=== PATIENT | female | born 1980 | race Caucasian/White ===

== ENCOUNTER 2024-07-28 12:30 | Inpatient (IN) | payer OTHER ==
[~2024-07-28] VITALS: Ht 154.9 cm; Wt 60.3 kg
[2024-07-28 13:02] VITALS: BP 124/79
[2024-07-28] MEDS ORDERED: MAGNESIUM SULFATE IN WATER 100 ML IV ONE (13:15)
[2024-07-28] MEDS ORDERED: RINGERS SOLUTION,LACTATED 1,000 ML IV SCH (13:15)
[2024-07-28] MEDS ORDERED: MAGNESIUM SULFATE IN WATER 500 ML IV SCH (13:30)
[2024-07-28] MEDS ORDERED: PRENATAL TABLE1 EAC4 PO (13:59)
[2024-07-28] MEDS ORDERED: IRON236 MG PO (14:00)
[2024-07-28] MEDS ORDERED: VITAMIN B-121000 MC4 PO (14:00)
[2024-07-28] MEDS ORDERED: FOLIC ACID0.4 MG PO (14:01)
[2024-07-28] MEDS ORDERED: ADULT LOW DOSE81 M1 PO (14:01)
[2024-07-28 14:04] LABS: URINE APPEARANCE Clear; URINE BILIRRUBIN Negative (NEGATIVE); URINE BLOOD Negative; URINE COLOR Yellow; URINE GLUCOSE Negative (NEGATIVE); URINE KETONE Negative (NEGATIVE); URINE LEUKOCYTE Negative; URINE NITRATE Negative; URINE PROTEIN Negative (NEGATIVE); URINE UROBILINOGEN 0.2 E.U./dl
[2024-07-28 14:05] LABS: URINE BACTERIA 430.9 uL (0.0-1933); URINE EPITHELIAL CELLS 24.7 uL (0.0-38.8); URINE WBC 7.4 uL (0.0-23.2)
[2024-07-28 14:07] LABS: HEMOGLOBIN 12.3 g/dL (12.0-15.00); MEAN CELL VOLUME 93.1 fL (80.00-100.00); MEAN CORPUSCULAR HEMOGLOBIN 31.8 pg (27.00-32.0); MEAN CORPUSCULAR HGB CONC 34.1 g/dl (32.0-36.0); PLATELET COUNT 242 K/uL (150-450); RED BLOOD COUNT 3.87 M/uL (4.00-6.00); RED CELL DISTRIBUTION WIDTH 14.2 % (11.5-14.5)
[2024-07-28 14:32] LABS: BILIRUBIN TOTAL 0.4 mg/dL (0.3-1.2); CALCIUM 9.3 mg/dL (8.5-10.1); CREATININE SERUM 0.45 mg/dL (0.55-1.02); GFR 152.8; GLOBULINA 3.7 G/DL (2.4-3.5); POTASSIUM 4.21 mEq/L (3.5-5.1); TOTAL PROTEIN 6.7 gm/dL (6.4-8.2)
[2024-07-28 15:21] VITALS: BP 111/73
[2024-07-28 19:09] VITALS: BP 116/71
[2024-07-28 23:20] VITALS: BP 111/68
[2024-07-29 04:00] VITALS: BP 109/62
[2024-07-29 06:27] VITALS: BP 106/68; O2SAT 97
[2024-07-29] MEDS ORDERED: NIFEDIPINE 60 MG TAB.SA.OSM PO SCH (09:00)
[2024-07-29 11:15] VITALS: BP 105/69
[2024-07-29 14:11] VITALS: BP 119/70; O2SAT 100
[2024-07-29 17:32] VITALS: BP 100/66
[2024-07-30 00:18] VITALS: BP 93/60
[2024-07-30 08:25] VITALS: BP 113/71
[2024-07-30 17:57] VITALS: BP 111/68
== END 2024-07-30 19:48 | disposition home or self-care (01) | DRG 833 ==
LOC: NST 12:30 → LDR 13:03 → OB/GYN 07-29 10:30
PROVIDERS: ADMIT Obstetrics & Gynecology; ATTEND Obstetrics & Gynecology
PROC: 4A1HXCZ Monitoring of Products of Conception, Cardiac Rate, External Approach (ICD-10-PCS; principal; 2024-07-28)
DX: O60.02 Preterm labor without delivery, second trimester (principal); Z3A.30 30 weeks gestation of pregnancy; Z20.822 Contact with and (suspected) exposure to COVID-19